=== PATIENT | male | born 1965 | race Caucasian/White ===

== ENCOUNTER 2019-07-22 18:34 | Inpatient (IN) | payer BC, OTHER ==
[~2019-07-22] VITALS: Ht 177.8 cm; Wt 117.9 kg
[2019-07-22] MEDS ORDERED: PIPER-TAZ 3.375 GM 50 ML IV ONE (19:48)
[2019-07-22] MEDS ORDERED: SODIUM CHLORIDE 0.9% 500ML 500 ML IV ONE (20:00)
[2019-07-22 20:09] LABS: BASOPHILS # (AUTO) 0.1 (0.0-0.1); BASOPHILS % 0.5 % (0.0-1.0); EOSINOPHILS # (AUTO) 0.3 (0.0-0.4); HEMATOCRIT 42.2 % (38.2-49.6); LYMPHOCYTES # (AUTO) 3.7 (1.0-3.2); LYMPHOCYTES % 35.1 % (18.0-39.1); MEAN CORPUSCULAR HEMOGLOBIN 31.3 pg (28-32); MEAN CORPUSCULAR HGB CONC 35.5 g/dL (31-35); MEAN CORPUSCULAR VOLUME 87.9 fL (81-99); MONOCYTES # (AUTO) 0.8 (0.2-0.8); MONOCYTES % 7.6 % (4.4-11.3); NEUTROPHILS # (AUTO) 5.7 (2.1-6.9); NEUTROPHILS % 53.4 % (38.7-80.0); PLATELET COUNT 279 x10e3/uL (140-360); RED CELL DISTRIBUTION WIDTH 12.5 % (11.7-14.4)
[2019-07-22 20:19] LABS: PARTIAL THROMBOPLASTIN TIME 28.5 seconds (23.8-35.5)
[2019-07-22 20:23] LABS: INR 0.91; PROTHROMBIN TIME 12.7 seconds (11.9-14.5)
--- NOTE | 2019-07-22 20:24 | Diagnostic Imaging Report ---
EXAM: LOWER LEG LEFT DATE: 07/22/2019 7:48 PM INDICATION: ^cellulitis after hitting leg on metal in garage 1 wk ago COMPARISON: None FINDINGS: Views of the left leg show no displaced fracture or localized bony erosion. Soft tissues appear edematous. IMPRESSION: No acute bony abnormality. Signed by: Dr. Bernard Mercedes M.D. on 07/22/2019 8:20 PM
[2019-07-22 20:29] LABS: ALANINE AMINOTRANSFERASE 33 IU/L (0-55); ALBUMIN 3.2 g/dL (3.5-5.0); ALBUMIN/GLOBULIN RATIO 0.8 (0.8-2.0); ALKALINE PHOSPHATASE 87 IU/L (40-150); BLOOD UREA NITROGEN 12 mg/dL (7-26); BUN/CREATININE RATIO 16 (6-25); CALCIUM 9.2 mg/dL (8.4-10.2); CARBON DIOXIDE 32 mmol/L (22-29); CHLORIDE 92 mmol/L (98-107); CREATINE KINASE 145 IU/L (30-200); CREATININE, SERUM 0.74 mg/dL (0.72-1.25); EST GLOMERULAR FILTRATION RATE > 60 ML/MIN (60-); GLUCOSE 318 mg/dL (74-118); MAGNESIUM 1.7 MG/DL (1.3-2.1); SODIUM 132 mmol/L (136-145)
[2019-07-22] MEDS ORDERED: ONDANSETRON HCL INJ 2MG/ML 2ML 2 MG/ML VIAL IV PRN (20:30)
[2019-07-22] MEDS ORDERED: MORPHINE SULFATE 2 MG/ML SYR 1ML IV PRN (20:30)
[2019-07-22] MEDS ORDERED: MORPHINE SULFATE INJ 4 MG/ML INJ 1ML IV PRN (20:45)
--- NOTE | 2019-07-22 21:07 | Diagnostic Imaging Report ---
EXAM: CHEST SINGLE (NOT PORTABLE) DATE: 07/22/2019 8:22 PM INDICATION: ^CELLULITIS ^[id number] ^2029 COMPARISON: None FINDINGS: Lines and tubes: None Heart size normal. No focal pulmonary opacity, pleural effusion or pneumothorax. Upper abdomen unremarkable. No acute bony abnormality. IMPRESSION: No evidence for acute disease. Signed by: Dr. Bernard Mercedes M.D. on 07/22/2019 9:04 PM
[2019-07-22] MEDS: FAMOTIDINE 20 MG/2 ML VIAL IV SCH (21:13)
[2019-07-22] MEDS: VANCOMYCIN 1GM/NS 250 ML 250 ML IV ONE ×2 (21:14→22:14)
--- NOTE | 2019-07-22 21:19 | NUR ---
pt brought back to room 7. pt asking about if beds available in hospital. pt informed that at this time patients will be holding in er until bed available. pt states that does not want to stay in hospital if not going to receive hospital bed. pt c/o lack of privacy and no tv. pt request to leave ama. pt offered er rm 3, informed that room has tv and door. hospital bed brought to room 3. pt agrees to stay in room to receive abx but states that may leave ama p antibiotics. charge nurse informed.
--- NOTE | 2019-07-22 21:44 | NUR ---
enio completed. pt asked if this nurse can "guarantee" him to get a hospital room then he will stay. pt informed that unable to "guarantee" a hospital room at this time, that the hospital is full. pt states that he will be leaving ama p bolus complete. charge nurse to room. pt states that will not stay in er all night, "i can go home and take antibiotics and be be in my own bed." risk of leaving during treatment discussed c patient. charge nurse also spoke to patient and clarified that pt leaving ama.
--- NOTE | 2019-07-22 22:14 | NUR ---
pt states that will not leave ama, agreed to stay in hospital. pt continues to threaten to leave if does not get a room in am. vancomycin started per orders. pt expressed frustration regarding lack of bathroom in room. pt informed once admitted to room, he would have personal bathroom in room.
[2019-07-22] MEDS ORDERED: OXYCODONE/ACETAMINOPHEN 5-325 1 EACH TABLET PO STA (22:31)
[2019-07-22 22:58] LABS: BACTERIA,URINE FEW /HPF; BILIRUBIN,URINE 1+ (NEGATIVE); CLARITY,URINE CLEAR (CLEAR); COLOR,URINE YELLOW (YELLOW); EPITHELIAL CELLS,URINE RARE /LPF; KETONES,URINE NEGATIVE (NEGATIVE); LEUKOCYTE ESTERASE ,URINE NEGATIVE (NEGATIVE); NITRITE,URINE NEGATIVE (NEGATIVE); PROTEIN,URINE DIPSTICK NEGATIVE (NEGATIVE); RBC,URINE 0-5 /HPF (0-5); URINE UROBILINOGEN 0.2 mg/dL (0.2 - 1); WBC,URINE (MAN) 0-5 /HPF (0-5)
[2019-07-22 22:59] LABS: MUCUS,URINE MODERATE (RARE)
--- NOTE | 2019-07-22 23:00 | NUR ---
pt c/o dressing to left leg being "too tight." dressing removed by patient. pt informed that wound should remain covered. new non adhering telfa applied to wound, covered c new abd pad, and secured in place c paper tape. pt states that dressing feels better. pt agrees to leave dressing in place.
--- NOTE | 2019-07-23 01:30 | NUR ---
to nurses station apologizing for patients behavior. states that patient is upset about having to be in hospital and "taking it out everybody." states that spoke to patient about risk of leaving hospital without treatment and benefits of staying for treatment. reassured that would attempt to make patient as comfortable as possible.
[2019-07-23] MEDS: PIPER-TAZ 3.375 GM 50 ML IV SCH ×2 (02:29→08:32)
[2019-07-23] MEDS ORDERED: ALPRAZOLAM0.5 MG PO (02:37)
[2019-07-23] MEDS ORDERED: LEVEMIR100 UNIT/1 SQ (02:37)
[2019-07-23] MEDS ORDERED: HUMALOG100 UNIT/3 SQ (02:37)
[2019-07-23] MEDS ORDERED: DULOXETINE HCL30 MG PO (02:37)
[2019-07-23] MEDS ORDERED: SILDENAFIL CITR25 MG PO (02:37)
[2019-07-23] MEDS ORDERED: PERCOCET 7.5-31 EACH PO (02:37)
[2019-07-23] MEDS ORDERED: ZOLPIDEM TARTRA10 MG PO (02:37)
--- NOTE | 2019-07-23 04:38 | NUR ---
to room to draw blood for cardiacs. pt noted upset that unable to draw blood from line. pt informed that would use smallest needle possible to draw blood. pt refused, and threatened to leave ama once again. charge nurse called to room. Addendum: 07/23/19 at 0550 by SERA to room to draw blood for cardiacs. pt noted upset that unable to draw blood from line. pt informed that would use smallest needle possible to draw blood. pt refused, and threatened to leave ama once again. charge nurse called to room. pt cursing at this nurse in presence of charge nurse. charge nurse Karla asked patient to refrain from cursing. blood drawn by charge nurse.
[2019-07-23 05:04] LABS: BASOPHILS % 0.5 % (0.0-1.0); EOSINOPHILS # (AUTO) 0.3 (0.0-0.4); HEMATOCRIT 41.7 % (38.2-49.6); HEMOGLOBIN 14.8 g/dL (14.0-18.0); LYMPHOCYTES # (AUTO) 3.1 (1.0-3.2); LYMPHOCYTES % 38.2 % (18.0-39.1); MEAN CORPUSCULAR HEMOGLOBIN 31.2 pg (28-32); MEAN CORPUSCULAR HGB CONC 35.5 g/dL (31-35); MONOCYTES # (AUTO) 0.7 (0.2-0.8); MONOCYTES % 8.8 % (4.4-11.3); NEUTROPHILS # (AUTO) 3.9 (2.1-6.9); NEUTROPHILS % 48.3 % (38.7-80.0); PLATELET COUNT 255 x10e3/uL (140-360); RED BLOOD COUNT 4.74 x10e6/uL (4.3-5.7); RED CELL DISTRIBUTION WIDTH 12.7 % (11.7-14.4)
[2019-07-23 05:25] LABS: CREATINE KINASE 122 IU/L (30-200)
[2019-07-23 05:28] LABS: ALANINE AMINOTRANSFERASE 34 IU/L (0-55); ALBUMIN/GLOBULIN RATIO 0.8 (0.8-2.0); ALKALINE PHOSPHATASE 80 IU/L (40-150); ANION GAP 13.4 mmol/L (8-16); BLOOD UREA NITROGEN 12 mg/dL (7-26); BUN/CREATININE RATIO 16 (6-25); CALCIUM 9.2 mg/dL (8.4-10.2); CARBON DIOXIDE 31 mmol/L (22-29); CHLORIDE 93 mmol/L (98-107); CHOL/HDL RATIO 5.1 (3.9-4.7); CHOLESTEROL 153 MD/DL (0-199); CREATININE, SERUM 0.74 mg/dL (0.72-1.25); EST GLOMERULAR FILTRATION RATE > 60 ML/MIN (60-); GLUCOSE 279 mg/dL (74-118); HDL CHOLESTEROL 30 MG/DL (40-60); LDL CHOLESTEROL 106 MG/DL (60-130); POTASSIUM 4.4 mmol/L (3.5-5.1); SODIUM 133 mmol/L (136-145); TRIGLYCERIDES 84 MG/DL (0-149)
--- NOTE | 2019-07-23 05:41 | NUR ---
pt out in hallway c/o noise from er doors opening and hitting wall that is adjacent to room. armboard pad obtained from supply room and taped to wall to decrease noise from door.
[2019-07-23] MEDS ORDERED: OXYCODONE/ACETAMINOPHEN 5-325 1 EACH TABLET PO PRN ×2 (07:00)
[2019-07-23] MEDS ORDERED: VANCOMYCIN 1GM/NS 250 ML 250 ML IV SCH ×2 (08:00→10:00)
[2019-07-23] MEDS: FAMOTIDINE 20 MG/2 ML VIAL IV SCH (08:43)
--- NOTE | 2019-07-23 09:07 | NUR ---
PATIENT REQUESTING TO BE DISCHARGED. DR. SHORE SPOKE WITH PATIENT IN DEPTH REGARDING HIS CONDITIONS. HE IS REFUSING ANY MORE LAB DRAWS BUT DID ALLOW ME TO GIVE ANOTHER DOSE OF ZOSYN 3.375 MG IV
--- NOTE | 2019-07-23 09:50 | NUR ---
PT AGAIN STATING WANTING TO LEAVE HOSPITAL AMA. PT STATES HE IS VERY UNDERSTANDING OF ALL RISK'S AND DANGERS OF LEAVING. STATES HE WILL F/U HIS PRIMARY. PT IV D/C'D AND SIGNED AMA FORM AND LEFT AMBULATORY WITH STEADY GAIT. PT AAOX4. WITH PT.
--- NOTE | 2019-07-23 09:54 | NUR ---
SPOKE WITH DR. Anna NEGRON REGARDING PATIENT LEFT AMA
--- OUTSIDE RECORDS SUMMARY | 2019-07-24 14:01 | XMS REPORT ---
Author Author [facility] Address Unknown Phone Unavailable Care Team Providers Care Pr Manager Name Role Phone JOSE CARLOS NEGRON Unavailable Unavailable Payers Payer Name Policy Type Policy Number Effective Date Expiration Date Problems This patient has no known problems. Allergies, Adverse Reactions, Alerts This patient has no known allergies or adverse reactions. Medications This patient has no known medications. Results Test Description Test Time Test Comments Text Results Atomic Results Result Comments CHEST SINGLE (NOT PORTABLE) 2019-07-22 21:02:00 [place] [address] Patient Name: ARCELIA MARSHALL MR #: [id number] : 1965 Age/Sex: 53/M Req #: [id number] [facility] Physician: JOSE CARLOS NEGRON MD Ordered by: JOCELYNN BRYANT MD Report #: [id number] Location: [facility] Room/Bed: [place] [address] Procedure: [id number] DX/CHEST SINGLE (NOT PORTABLE) Exam Date: 07/22/19 Exam Time: 2029 REPORT STATUS: Signed EXAM: CHEST SINGLE (NOT PORTABLE) DATE: 07/05 8:22 PM INDICATION: CELLULITIS [id number] COMPARISON: None FINDINGS: Lines and tubes: None Heart size normal. No focal pulmonary opacity, pleural effusion or pneumothorax. Upper abdomen unremarkable. No acute bony abnormality. IMPRESSION: No evidence for acute disease. Signed by: Dr. Garrick Gallego M.D. on 07/22/2019 9:04 PM Dictated By: GARRICK GALLEGO MD 03 Transcribed By: ANA on 07/22/192103 COPY TO: JOCELYNN BRYANT MD LOWER LEG LEFT 2019-07-22 20:19:00 [place] [address] Patient Name: ARCELIA MARSHALL MR #: [id number] : 1965 Age/Sex: 53/M Req #: [id number] Adm Physician: Ordered by: JOCELYNN BRYANT MD Report #: [id number] Location: ER Room/Bed: Procedure: [id number] DX/LOWER LEG LEFT Exam Date: Exam Time: REPORT STATUS: Signed EXAM: LOWER LEG LEFT DATE: 07/22/2019 7:48 PM INDICATION: cellulitis after hitting leg on metal in garage 1 wk ago COMPARISON: None FINDINGS: Views of the left leg show no displaced fracture or localized bony erosion. Soft tissues appear edematous. IMPRESSION: No acute bony abnormality. Signed by: Dr. Garrick Gallego M.D. on 07/22/2019 8:20 PM Dictated By: GARRICK GALLEGO MD 19 Transcribed By: ANA on 07/22/192019 COPY TO: JOCELYNN BRYANT MD
--- NOTE | 2019-09-13 00:22 | Discharge Summary ---
DISPOSITION: The patient leaves AMA on 07/23/2019. CHIEF COMPLAINT: Lower extremity pain and swelling. FINAL DIAGNOSIS: Unclear, the patient leaving AMA. HOSPITAL COURSE: A 53-year-old male, presents to the ER complaining of lower extremity pain and swelling, described as moderate intensity, began about 1 week ago and still present, localized in the area of the right leg. Noted to have redness and swelling. There is no difficulty walking. No other complaints. No injuries to the leg. No history of similar symptoms. He has a past history of diabetes mellitus along with lymphedema. He underwent evaluation in the ER. With admission of cellulitis of left lower leg. He does state that he hit his leg on a metal object in his garage 1 week prior to this admission, which began with issues of his complaint. The patient was brought to the Med-Surg floor. It was noted that the patient was stating at that time that he do not want to stay in the hospital if he was not going to receive his hospital bed and that the patient was needing to be waited in the ER until the bed was available. He was complaining of lack of privacy. No TV. He was requesting to leave AMA. The nurses offered him the ER room #3 and that the room has TV and does have a door for privacy. Hospital bed was brought to that room. The patient was agreeing to stay in the room and begin care, but he was still continuing to say that he may leave AMA anyway. Antibiotics were administered to the patient. He was receiving IV Zosyn and he was getting tired of staying in the ER room and was threatening to leave the facility if do not get a room on the floor by the morning and also been started on vancomycin. He was voicing concerns and frustrations about no bathroom in the room. He began refusing to have any more labs drawn, again stating that he was wanting to leave the facility AMA, and he was aware and understands all the risk and dangers of leaving AMA. He states that he will follow up with his primary on outpatient basis. IVs were discontinued. The patient signed the AMA form and left ambulatory with his . I was made aware of the patient leaving AMA by the nursing staff. Dictated by BERE Rubio MD KANDICE Rees/SARAH /[id number]
== END 2019-07-23 10:05 | disposition left against medical advice (07) | DRG 603 ==
LOC: ER 18:34 → ERHOLD 20:26
DX: L03.116 Cellulitis of left lower limb (principal); E11.9 Type 2 diabetes mellitus without complications; I89.0 Lymphedema, not elsewhere classified
CPT/HCPCS: 36415; 71045; 80053; 80061; 81001; 82550; 82553; 83735; 83880; 84484; 85025; 85610; 85730; 87040; 87086; 96374; 99284; J2543; J3370; J7040

== ENCOUNTER → 2022-03-13 | Outpatient (CLI) | payer BC ==
[~2022-03-13] MED LIST: ALPRAZOLAM0.5 MG PO; DULOXETINE HCL30 MG PO; HUMALOG100 UNIT/3 SQ; LEVEMIR100 UNIT/1 SQ; PERCOCET 7.5-31 EACH PO; SILDENAFIL CITR25 MG PO; ZOLPIDEM TARTRA10 MG PO
== END ==
LOC: MRI 12:52
PROVIDERS: ATTEND Physician Assistant
DX: M75.82 Other shoulder lesions, left shoulder (principal)

== ENCOUNTER 2022-05-15 11:13 | Emergency (ER) | payer BC ==
[~2022-05-15] VITALS: Ht 177.8 cm; Wt 117.9 kg
[2022-05-15] MEDS ORDERED: ONDANSETRON HCL INJ 2MG/ML 2ML 2 MG/ML VIAL IV STA (11:31)
[2022-05-15] MEDS ORDERED: SODIUM CHLORIDE 0.9% 1000ML 1,000 ML IV ONE (11:45)
[2022-05-15] MEDS ORDERED: DICYCLOMINE HCL 20 MG TAB PO ONE (11:45)
[2022-05-15 12:07] LABS: BASOPHILS % 0.3 % (0.0-1.0); HEMATOCRIT 41.7 % (38.2-49.6); HEMOGLOBIN 14.5 g/dL (14.0-18.0); LYMPHOCYTES # (AUTO) 1.3 (1.0-3.2); LYMPHOCYTES % 11.1 % (18.0-39.1); MEAN CORPUSCULAR HEMOGLOBIN 31.2 pg (28-32); MEAN CORPUSCULAR HGB CONC 34.8 g/dL (31-35); MEAN CORPUSCULAR VOLUME 89.7 fL (81-99); MONOCYTES # (AUTO) 0.3 (0.2-0.8); MONOCYTES % 2.9 % (4.4-11.3); NEUTROPHILS # (AUTO) 9.7 (2.1-6.9); NEUTROPHILS % 85.3 % (38.7-80.0); PLATELET COUNT 301 x10e3/uL (140-360); RED BLOOD COUNT 4.65 x10e6/uL (4.3-5.7); RED CELL DISTRIBUTION WIDTH 11.5 % (11.7-14.4)
[2022-05-15 12:26] LABS: ALBUMIN 3.4 g/dL (3.5-5.0); ALBUMIN/GLOBULIN RATIO 0.6 (0.8-2.0); ANION GAP 16.6 mmol/L (8-16); CALCIUM 9.3 mg/dL (8.4-10.2); CREATININE, SERUM 0.72 mg/dL (0.72-1.25); POTASSIUM 3.6 mmol/L (3.5-5.1)
[2022-05-15] MEDS ORDERED: Morphine 4mg INJECTION 4 MG/ML INJ IV ONE (12:45)
[2022-05-15] MEDS ORDERED: PROMETHAZINE HCL (IM) 25 MG/ML VIAL IM ONE (12:45)
[2022-05-15] MEDS ORDERED: PROMETHAZINE HC25 M1 PO (12:50)
== END 2022-05-15 13:15 | disposition home or self-care (01) ==
LOC: ER 11:20
DX: R11.2 Nausea with vomiting, unspecified (principal); F11.23 Opioid dependence with withdrawal; G89.29 Other chronic pain; E11.65 Type 2 diabetes mellitus with hyperglycemia; E78.5 Hyperlipidemia, unspecified
CPT/HCPCS: 36415; 80053; 85025; 99284; J2270; J2405; J2550; J7030

== ENCOUNTER 2022-06-17 21:05 | Emergency (ER) | payer BC ==
[~2022-06-17] VITALS: Ht 177.8 cm; Wt 117.9 kg
[~2022-06-17 21:05] MED LIST changes: +PROMETHAZINE HC25 M1 PO
[2022-06-17] MEDS ORDERED: ROPINIROLE HCL 0.25 MG TAB PO STA (21:24)
[2022-06-17] MEDS ORDERED: GABAPENTIN 100 MG CAP PO STA (21:24)
== END 2022-06-17 22:18 | disposition home or self-care (01) ==
LOC: ER 21:12
DX: G25.81 Restless legs syndrome (principal); E11.9 Type 2 diabetes mellitus without complications; E78.5 Hyperlipidemia, unspecified; M54.9 Dorsalgia, unspecified; G89.29 Other chronic pain
CPT/HCPCS: 99282